=== PATIENT | female | born 2000 | race Caucasian/White ===

== ENCOUNTER 2021-10-04 23:10 | Emergency (ER) | payer MEDICAID ==
[~2021-10-04] VITALS: Ht 167.6 cm; Wt 83.0 kg
[2021-10-05] MEDS ORDERED: MAGNESIUM/ALUMINUM HYDROXIDE/SIMETHICONE 30ML UDC PO STA (00:32)
[2021-10-05] MEDS ORDERED: VISCOUS LIDOCAINE 2% 15 ML UDC PO STA (00:32)
[2021-10-05] MEDS ORDERED: MORPHINE SULFATE 4 MG/ML CPJ (NOT FOR IM USE) IV STA (00:32)
[2021-10-05] MEDS ORDERED: ONDANSETRON HCL 4MG/2ML INJ IV STA (00:32)
[2021-10-05] MEDS ORDERED: FAMOTIDINE 20MG/2ML VIAL IV ONE (00:45)
[2021-10-05 01:08] LABS: BASOPHILS % 0.8 % (0.0-2.0); EOSINOPHILS % 2.1 % (0.0-5.0); HEMOGLOBIN. 12.9 g/dL (12.0-16.0); LYMPHOCYTES % 49.1 % (20.0-50.0); MEAN CORPUSCULAR HEMOGLOBIN 29.3 pg (28.0-32.0); MEAN CORPUSCULAR VOLUME 86.3 fL (81.0-99.0); MEAN PLATELET VOLUME 7.5 fl (7.4-10.4); MONOCYTES % 6.7 % (2.0-8.0); NEUTROPHILS % 41.3 % (40.0-76.0); PLATELET 312 x1000/uL (130-400); RED CELL DISTRIBUTION WIDTH 13.9 % (11.6-14.6)
[2021-10-05 01:11] LABS: CHLORIDE 106 mEq/L (98-107)
[2021-10-05 02:11] LABS: INR 1.1; PROTHROMBIN TIME 11.9 sec (9.6-11.0)
[2021-10-05 02:14] LABS: HCG SCREEN NEGATIVE
[2021-10-05] MEDS ORDERED: TOPUD PO (03:16)
[2021-10-05] MEDS ORDERED: LACT1CAP78 MT (03:16)
[2021-10-05] MEDS ORDERED: MORP15TA67 MT (03:16)
[2021-10-05] MEDS ORDERED: ONDA4TAB50 MT (03:16)
[2021-10-05 03:28] LABS: CLARITY URINE CLEAR (CLEAR); COLOR URINE YELLOW (YELLOW); KETONES URINE NEGATIVE (NEGATIVE); NITRITE URINE NEGATIVE (NEGATIVE); OCCULT BLOOD URINE NEGATIVE (NEGATIVE); PROTEIN URINE NEGATIVE (NEGATIVE); SPECIFIC GRAVITY URINE 1.009 (1.005-1.030); UROBILINOGEN URINE 0.2 E.U./dL (0.2-1.0)
[2021-10-05 03:29] LABS: LEUKOCYTE ESTERASE URINE 2+ (NEGATIVE)
[2021-10-05 04:03] VITALS: BP 124/78
== END 2021-10-05 03:30 | disposition home or self-care (01) ==
LOC: ER 23:10
DX: K92.1 Melena (principal); R10.9 Unspecified abdominal pain
CPT/HCPCS: 36415; 74176; 80053; 81003; 81025; 83690; 84703; 85025; 85610; 86850; 86900; 86901; 96374; 96375; 99284; J2270; J2405; J3490

== ENCOUNTER 2021-11-12 00:31 | Emergency (ER) | payer MEDICAID ==
[~2021-11-12] VITALS: Ht 167.6 cm; Wt 82.0 kg
[~2021-11-12 00:31] MED LIST: LACT1CAP78 MT; MORP15TA67 MT; ONDA4TAB50 MT; TOPUD PO
[2021-11-12 00:54] VITALS: BP 115/61
== END 2021-11-12 03:36 | disposition left against medical advice (07) ==
LOC: ER 00:31
DX: Z53.21 Procedure and treatment not carried out due to patient leaving prior to being seen by health care provider (principal)